=== PATIENT | female | born 1965 ===

== ENCOUNTER → 2020-11-18 | Outpatient (REF) ==
--- NOTE | 2020-11-19 03:55 | REPPI ---
INDICATION: DISABILITY DETERMINATION COMPARISON: None. TECHNIQUE: Internal rotation, external rotation, and Y view. FINDINGS: Cortical irregularity and subtle spurring at the acromioclavicular joint is appreciated along with subtle blunting to the glenoid rim. The subacromial space is normal. No periarticular calcifications or loose bodies are identified. No acute fracture or dislocation. IMPRESSION: Mild arthritic changes suggested. <Electronically signed by Den Freedman > 11/19/20 [id number]
== END ==
LOC: M PLAIMG 12:31
PROVIDERS: ATTEND Internal Medicine
DX: M19.012 Primary osteoarthritis, left shoulder (principal)